=== PATIENT | female | born 1985 | race Asian ===

== ENCOUNTER 2019-03-28 23:40 | Emergency (ER) | payer SELFPAY ==
[~2019-03-28] VITALS: Ht 165.1 cm; Wt 78.0 kg
[2019-03-28 23:42] VITALS: BP 127/91; PULSE 88; RESP 20; Ht 165.1 cm; Wt 78.0 kg
== END 2019-03-29 02:30 | disposition left against medical advice (07) ==
LOC: FTE 23:40
DX: Z53.21 Procedure and treatment not carried out due to patient leaving prior to being seen by health care provider (principal)

== ENCOUNTER 2019-04-01 15:19 | Emergency (ER) | payer OTHER ==
[~2019-04-01] VITALS: Ht 167.6 cm; Wt 63.9 kg
[2019-04-01 15:21] VITALS: Ht 167.6 cm; Wt 63.9 kg
[2019-04-01] MEDS ORDERED: MECLIZINE 12.5 MG TAB PO ONE (16:00)
[2019-04-01] MEDS ORDERED: MECL12.574 PO (18:28)
--- NOTE | 2019-04-01 18:30 | ERD ---
ER Documentation Chief Complaint Chief Complaint Complains of dizziness on and off since Thursday HPI Patient is a 33-year-old female with no medical problems who presents with dizziness. The patient has had dizziness since Thursday. She was driving at the time and had stopped driving. She felt lightheaded and her hands were shaking. The symptoms come and go. She has felt ringing in her right ear recently. She does not remember the name of her primary doctor. She has had no treatment as of yet. ROS All systems reviewed and are negative except as per history of present illness. Medications Home Meds Active Scripts Meclizine Hcl* (Antivert*) 12.5 Mg Tab, 25 MG PO Q6H PRN for DIZZINESS, #20 TAB Prov:IMELDA ZAYAS MD 04/01/19 Allergies Allergies: Coded Allergies: No Known Drug Allergy (Verified Allergy, Unknown, 04/01/19) PMhx/Soc Medical and Surgical Hx: pt denies Medical Hx History of Surgery: No Anesthesia Reaction: No Hx Neurological Disorder: No Hx Respiratory Disorders: No Hx Cardiac Disorders: No Hx Psychiatric Problems: No Hx Miscellaneous Medical Probl: No Hx Alcohol Use: No Hx Substance Use: No Hx Tobacco Use: No Smoking Status: Never smoker FmHx Family History: No diabetes Physical Exam Vitals Vital Signs Date Temp Pulse Resp B/P (MAP) Pulse Ox O2 O2 Flow FiO2 Time Delivery Rate 04/01/19 98.8 92 20 121/76 100 15:21 (91) Physical Exam Const: No acute distress Head: Atraumatic Eyes: Normal Conjunctiva ENT: Normal External Ears, Nose and Mouth. Neck: Full range of motion. No meningismus. Resp: Clear to auscultation bilaterally Cardio: Regular rate and rhythm, no murmurs Abd: Soft, non tender, non distended. Normal bowel sounds Skin: No petechiae or rashes Back: No midline or flank tenderness Ext: No cyanosis, or edema Neur: Awake and alert, cranial nerves II through XII are intact, strength is 5 out of 5 in all 4 extremities, no slurred speech Psych: Normal Mood and Affect Results 24 hrs Laboratory Tests Test 04/01/19 15:55 04/01/19 18:17 Bedside Glucose 82 mg/dL POC Beta HCG, Qualitative NEGATIVE Current Medications Medications Dose Sig/Jesse Start Time Status Last (Trade) Ordered Route PRN Stop Time Admin Dose Reason Admin Meclizine 25 mg ONCE ONCE 04/01/19 DC 04/01/19 HCl PO 16:00 16:10 (Antivert) 04/01/19 16:01 Procedures/MDM EKG read by me: Rate/Rhythm: Regular rate and rhythm at a rate of 92 Intervals: Normal Impression: No evidence of ischemia or arrhythmia Accu-Chek is normal. test negative. Patient is a 33-year-old female presents with dizziness. At this point I doubt stroke. I doubt intrarenal mass or hemorrhage and I believe the risk of doing a CT scan of the brain outweigh the benefits. The patient has a normal sugar and I doubt hyper or hypoglycemia. The patient has a negative test and I doubt or ectopic . EKG was normal I doubt significant cardiac arrhythmia. The patient will be discharged and can follow-up with the primary doctor within 24 to 48 hours. The patient can return for any worsening symptoms. The patient will be given a prescription for meclizine. Departure Diagnosis: Primary Impression: Dizziness Condition: Fair Patient Instructions: Dizziness, Unk Cause Additional Instructions: Call your primary care doctor TOMORROW for an appointment during the next 1-2 days.See the doctor sooner or return here if your condition worsens before your appointment time. IMELDA ZAYAS MD April 01, 2019 18:30
[2019-04-01 18:42] VITALS: BP 101/78; PULSE 78; RESP 18
--- NOTE | 2019-04-03 11:58 | RADRPT ---
Vent Rate: 92 bpm RR Interval: 0 msec MS Interval: 136 msec QRS Duration: 84 msec QT Interval: 342 msec QTC Interval: 422 msec P-R-T [place]: 58 - 51 - 38 degrees Normal sinus rhythm Normal ECG Electronically Signed By: *[facility]
== END 2019-04-01 18:50 | disposition home or self-care (01) ==
LOC: E/R 15:19
DX: R42 Dizziness and giddiness (principal)
CPT/HCPCS: 81025; 82962; 93005; Z7502; Z7610